=== PATIENT | female | born 1985 | race Caucasian/White ===

== ENCOUNTER 2018-05-17 09:12 | Emergency (ER) | payer OTHER ==
[2018-05-17] MEDS ORDERED: Acetaminophen 500 MG TAB ONE (09:37)
== END 2018-05-17 09:57 | disposition home or self-care (01) ==
LOC: ERS 09:12
DX: H66.93 Otitis media, unspecified, bilateral (principal); J06.9 Acute upper respiratory infection, unspecified; Z79.899 Other long term (current) drug therapy
CPT/HCPCS: 99283